=== PATIENT | female | born 1980 | race Hispanic/Latino ===

== ENCOUNTER 2018-03-16 11:55 | Emergency (ER) | payer MEDICAID ==
[2018-03-16] MEDS ORDERED: ACETAMINOPHEN EXTRA STRENGTH 500 MG TABLET ONE (13:55)
== END 2018-03-16 14:27 | disposition home or self-care (01) ==
LOC: EDH 11:55
DX: S40.012A Contusion of left shoulder, initial encounter (principal); S50.02XA Contusion of left elbow, initial encounter; Z88.0 Allergy status to penicillin; W18.39XA Other fall on same level, initial encounter; Y93.89 Activity, other specified; Y92.098 Other place in other non-institutional residence as the place of occurrence of the external cause; Y99.8 Other external cause status
CPT/HCPCS: 73030; 73080

== ENCOUNTER 2018-09-08 21:42 | Emergency (ER) | payer MEDICAID ==
[2018-09-08] MEDS ORDERED: ACETAMINOPHEN EXTRA STRENGTH 500 MG TABLET ONE (21:56)
[2018-09-08] MEDS ORDERED: ONDANSETRON ODT 4 MG TAB ONE (21:56)
[2018-09-08 23:12] LABS: RAPID GROUP A STREP NEGATIVE (NEGATIVE)
[2018-09-08] MEDS ORDERED: CEPHALEXIN 500 MG CAPSULE ONE (23:55)
== END 2018-09-09 | disposition home or self-care (01) ==
LOC: EDH 21:42
DX: J02.9 Acute pharyngitis, unspecified (principal); Z88.0 Allergy status to penicillin
CPT/HCPCS: 87804; 87880

== ENCOUNTER 2024-04-28 07:55 | Emergency (ER) | payer SELFPAY ==
[~2024-04-28] VITALS: Ht 157.5 cm; Wt 91.2 kg
[2024-04-28 08:35] LABS: HEMATOCRIT 42.9 % (36-48); MEAN CORPUSCULAR HEMOGLOBIN 27.5 pg (27.0-33.0); MEAN CORPUSCULAR HGB CONC 32.4 g/dL (32.0-36.0); MEAN CORPUSCULAR VOLUME 84.8 fL (79-99); PLATELET COUNT (AUTO) 392 K/uL (130-400); RED BLOOD CELL COUNT(AUTO) 5.06 MIL/uL (4.00-5.50); WHITE BLOOD COUNT (AUTO) 8.8 K/uL (4.8-10.8)
[2024-04-28 08:39] LABS: APPEARANCE,URINE CLEAR (CLEAR); BILIRUBIN,URINE NEGATIVE (NEGATIVE); COLOR,URINE COLORLESS (YELLOW); GLUCOSE, URINE (UA) NEGATIVE (NEGATIVE); KETONES,URINE NEGATIVE (NEGATIVE); LEUKOCYTE ESTERASE ,URINE NEGATIVE Leu/uL (NEGATIVE); NITRATE,URINE NEGATIVE (NEGATIVE); OCCULT BLOOD,URINE LARGE (NEGATIVE); PH,URINE 7.5 (5.0-8.0); PROTEIN,URINE NEGATIVE (NEGATIVE); UROBILINOGEN,URINE 0.2 mg/dL (0.2-1.0)
[2024-04-28 08:42] LABS: AMPHET/METH SCREEN,URINE NEGATIVE (NEGATIVE); BARBITURATE SCREEN, URINE NEGATIVE (NEGATIVE); BENZODIAZEPINES SCREEN,URINE POSITIVE (NEGATIVE); CANNABINOID SCREEN,URINE POSITIVE (NEGATIVE); COCAINE SCREEN,URINE NEGATIVE (NEGATIVE); OPIATE SCREEN,URINE NEGATIVE (NEGATIVE); PHENCYCLIDINE SCREEN,URINE NEGATIVE (NEGATIVE)
[2024-04-28 08:44] LABS: ADD UA MICROSCOPIC YES
[2024-04-28 08:57] LABS: CREATININE 0.8 mg/dL (0.5-1.0); POTASSIUM 3.3 mmol/L (3.5-5.1)
[2024-04-28 08:58] LABS: BASOPHILS # (AUTO) 0.03 K/uL (0.00-0.20); BASOPHILS % (AUTO) 0.3 % (0.0-5.0); EOSINOPHILS # (AUTO) 0.13 K/uL (0.00-0.70); EOSINOPHILS % (AUTO) 1.5 % (0.0-8.0); IMMATURE GRANULOCYTE ABSOLUTE 0.02 K/uL (0-1); LYMPHOCYTES # (AUTO) 2.6 K/uL (1.0-4.8); LYMPHOCYTES % (AUTO) 29.7 % (21.0-51.0); MONOCYTES # (AUTO) 0.5 K/uL (0.1-1.0); MONOCYTES % (AUTO) 5.2 % (3.0-13.0); NEUTROPHILS # (AUTO) 5.6 K/uL (1.8-7.7); NEUTROPHILS % (AUTO) 63.1 % (40.0-77.0)
[2024-04-28 08:59] LABS: COVID19 (SARS ANTIGEN RAPID) PRESUMPTIVE NEGATIVE (NEGATIVE); INFLUENZA TYPE A Negative For Type A (NEGATIVE); INFLUENZA TYPE B Negative For Type B (NEGATIVE)
[2024-04-28 08:59] LABS: RBC,URINE 0-1 /HPF (0-1); SQUAMOUS EPITHELIAL CELL,UR RARE /HPF (0-2)
[2024-04-28] MEDS ORDERED: HYDR-3421 PO (11:22)
[2024-04-28] MEDS: KCL 20 MEQ ERTAB PO ONE (11:46)
[2024-04-28] MEDS ORDERED: ALPR0.5T PO (12:58)
[2024-04-28] MEDS: HYDROXYZINE 25 MG TABLET PO ONE (13:22)
[2024-04-28 13:33] VITALS: BP 143/74; PULSE 78; RESP 18; O2SAT 98
== END 2024-04-28 13:37 | disposition home or self-care (01) ==
LOC: EDH 07:55
DX: F41.0 Panic disorder [episodic paroxysmal anxiety] (principal); Z88.0 Allergy status to penicillin; Z20.822 Contact with and (suspected) exposure to COVID-19
CPT/HCPCS: 36415; 71045; 80048; 80305; 81001; 85025; 87426; 87804

== ENCOUNTER → 2024-08-25 | Outpatient (CLI) | payer MEDICAID ==
[~2024-08-25] MED LIST: ALPR0.5T PO; HYDR-3421 PO; IOHEXOL-350 75 ML VIAL IV ONE
--- NOTE | 2024-08-25 09:59 | HMCIMG ---
CT ABDOMEN W/CONTRAST REASON: Diverticulitis of large intestine without perforation or abscess without bl COMPARISON: None. TECHNIQUE: Images are obtained from lung bases through the iliac crests. Contrast volume was 75 cc Omnipaque 350. 2The exam was ordered as a CT abdomen only. Both discussions were performed with the physician's office and with the patient who both elected to proceed with the procedure despite absence of coverage in the pelvis. FINDINGS: Lung bases are clear. There are no focal liver lesions. There are normal-appearing kidneys.. Spleen and pancreas appear unremarkable. The gallbladder appears normal as well. Bowel loops appear unremarkable. This includes normal appearance of the appendix. The colon was only evaluated due to the level of the distal descending colon, the rectosigmoid colon was not included on the images. There is no evidence of free fluid or intraperitoneal air. There are no focal fluid collections. Aorta and retroperitoneum appear normal as do pelvic soft tissue structures. The anterior abdominal wall is intact. Osseous structures appear unremarkable. IMPRESSION: 1. Negative noncontrast CT abdomen. 2. CT pelvis recommended for further evaluation is clinical concern persists concerning a sigmoid diverticulitis. CT was performed with one or more following dose reduction techniques: automated exposure control, adjustment of the mA and kv according to patient's size, or use of a iterative reconstruction technique.
== END | disposition home or self-care (01) ==
LOC: RAH 08:44
PROVIDERS: ATTEND Internal Medicine Gastroenterology
DX: K57.32 Diverticulitis of large intestine without perforation or abscess without bleeding (principal)
CPT/HCPCS: 74160; Q9967

== ENCOUNTER 2024-09-23 15:44 | Emergency (ER) | payer MEDICAID ==
[~2024-09-23] VITALS: Ht 157.5 cm; Wt 90.7 kg
[~2024-09-23 15:44] MED LIST changes: -IOHEXOL-350 75 ML VIAL IV ONE
[2024-09-23 15:48] VITALS: BP 134/80; PULSE 79; RESP 20; TEMP 97.3
--- NOTE | 2024-09-23 16:40 | ERN ---
ED Note History of Present Illness Stated Complaint: CP Chief Complaint: Flu Symptoms Time Seen by MD: 16:09 Time Seen by Midlevel: 16:09 Dictation: 44-year-old female presents to the ED for evaluation of flu-like symptoms onset 3 days ago patient is complaining of cough, chest pain, but denies any shortness a breath or any other associated symptoms at this time. Allergies: Coded Allergies: Penicillins (Unverified Allergy, Unknown, 04/28/24) Home Meds Active Scripts Alprazolam (Xanax) 0.5 Mg Tablet, 0.5 MG PO [id number] PRN for anxiety, #3 TAB Prov:LANA PAIGE MD 04/28/24 Hydroxyzine HCl (Hydroxyzine HCl) 25 Mg Tablet, 25 MG PO TIDP PRN for anxiety, #20 TAB Prov:LANA PAIGE MD 04/28/24 Past Medical History Past Medical History: No Pertinent History Surgical History: Family History: Negative Social History: Lives with family Review of System Dictation Constitutional: Negative for fever,chills, and weight loss Eyes: Negative for injury, pain,redness, and discharge ENT: Negative for injury,pain or swelling Cardiovascular: Positive for chest pain negative for palpitations, and edema Respiratory: Positive for cough, Negative for shortness of breath and wheezing, Abdomen/GI: Negative for abdominal pain, nausea, vomiting, diarrhea, and constipation Back: Negative for injury and pain : Negative for injury, bleeding and discharge MS/Extremity: Negative for injury and deformity Skin: Negative for rash, and discoloration Neuro: Negative for headache, weakness, numbness, tingling, and seizure Psych: Negative for suicide ideation, homicidal ideation, and hallucinations Initial Vital Sign VS Vital Signs Date Time Temp Pulse Resp B/P (MAP) Pulse Ox O2 Delivery O2 Flow Rate FiO2 09/23/24 15:48 97.3 79 20 134/80 98 Room Air 0 Physical Exam Dictation General: awake, alert, NAD Head/Face: Normocephalic, atraumatic Eyes: PERRL, EOMI, vision at baseline ENT: oral cavity clear, TMs clear, no signs of infection Neck: Trachea midline, supple, no nuchal rigidity Cardiovascular: RRR, normal S1/S2, No MRGs, no JVD Respiratory: CTAB, no respiratory distress, No rales or wheezes Abdomen: Soft, non-tender, non-distended, normal bowel sounds, no guarding or rebound. Skin: Warm, dry, normal turgor, no rash MS/Extremity: Pulses equal, no cyanosis, neurovascular intact, FROM Neuro: COAx4, GCS 15, strength 5/5, CN 2-12 intact, normal cerebellar exam, normal gait, Psych: Normal behavior, mood, and affect normal Results (Laboratory/Radiology) Laboratory/Radiology Laboratory Tests Test 09/23/24 16:34 09/23/24 16:58 Influenza Type A Antigen Negative For Type A Influenza Type B Antigen Negative For Type B SARS-CoV-2, RNA, NAAT NEGATIVE SARS CoV-2 Group A Streptococcus Rapid negative (NEGATIVE) White Blood Count 9.8 K/uL (4.8-10.8) Red Blood Count 4.62 MIL/uL (4.00-5.50) Hemoglobin 13.0 g/dL (12.0-16.0) Hematocrit 39.2 % (36-48) Mean Corpuscular Volume 84.8 fL (79-99) Mean Corpuscular Hemoglobin 28.1 pg (27.0-33.0) Mean Corpuscular Hemoglobin Concent 33.2 g/dL (32.0-36.0) Red Cell Distribution Width 13.7 % (11.0-15.5) Platelet Count 311 K/uL (130-400) Mean Platelet Volume 8.8 fL (7.5-10.5) Immature Granulocyte % (Auto) 0.5 % (0-1) Neutrophils (%) (Auto) 61.5 % (40.0-77.0) Lymphocytes (%) (Auto) 29.9 % (21.0-51.0) Monocytes (%) (Auto) 5.9 % (3.0-13.0) Eosinophils (%) (Auto) 1.8 % (0.0-8.0) Basophils (%) (Auto) 0.4 % (0.0-5.0) Neutrophils # (Auto) 6.1 K/uL (1.8-7.7) Lymphocytes # (Auto) 2.9 K/uL (1.0-4.8) Monocytes # (Auto) 0.6 K/uL (0.1-1.0) Eosinophils # (Auto) 0.18 K/uL (0.00-0.70) Basophils # (Auto) 0.04 K/uL (0.00-0.20) Absolute Immature Granulocyte (auto 0.05 K/uL (0-1) Nucleated Red Blood Cells 0.0 % (0.0-0.19) Sodium Level 139 mmol/L (136-145) Potassium Level 3.8 mmol/L (3.5-5.1) Chloride Level 103 mmol/L (101-111) Carbon Dioxide Level 29 mmol/L (21-32) Blood Urea Nitrogen 7 mg/dL (7-18) Creatinine 0.7 mg/dL (0.5-1.0) Glomerular Filtration Rate Calc 111 mL/min (>90) Random Glucose 93 mg/dL (70-105) Total Calcium 8.7 mg/dL (8.5-10.1) Total Creatine Kinase 140 U/L (21-232) Troponin I High Sensitivity < 4 ng/L (4-50) L B-Type Natriuretic Peptide 20 pg/mL (0-100) [place] [address] IMAGING REPORT Signed PATIENT: ONI CHAVEZ MR#: [id number] : 1980 SEX: F AGE: 44 LOCATION: [facility] ORDER 35 STATUS: [facility] REPORT#: [id number] SERVICE [id number] REASON: cough/sob ORDERING PHYSICIAN: JAMAL HILL PROCEDURE: CXR1VW - CHEST 1VW CHEST 1VW HISTORY: Cough COMPARISON: 04/28/2024 FINDINGS: A frontal projection of the chest was obtained. Prominent interstitial markings are seen with possible superimposed infiltrates. The heart is normal in size. Mild degenerative changes are seen. No evidence of aortic calcification is seen. IMPRESSION: 1. Prominent interstitial markings are seen with possible superimposed infiltrates. DICTATED BY: KAIA YEBOAH MD DATE: 09/23/241820 ELECTRONICALLY SIGNED BY: KAIA YEBOAH MD DATE: 09/23/241823 Labs Reviewed?: Yes EKG Comment: EKG 09/23/2024 time 3:51 p.m. ventricular rate 70, WA 141, QRS D 80, QT 396. Sinus rhythm. No STEMI ED Course ED Course Orders Procedure Category Date Status Time 12 Lead Ekg Tracing- EKG 09/23/24 Resulted Technical 16:22 Covid Rna Naat LAB 09/23/24 Complete 16:22 Influenza Type A & B, LAB 09/23/24 Complete Rapid 16:22 Rapid (Group A Strep) LAB 09/23/24 Complete 16:22 B-Type Natriuretic LAB 09/23/24 Complete Peptide 16:35 Cbc With Differential LAB 09/23/24 Complete 16:35 Basic Metabolic Panel LAB 09/23/24 Complete 16:35 Creatine Kinase, Total LAB 09/23/24 Complete 16:35 Troponin I High LAB 09/23/24 Complete Sensitivity 16:35 Chest 1vw RAD 09/23/24 Resulted 16:35 Vital Signs Date Time Temp Pulse Resp B/P (MAP) Pulse Ox O2 Delivery O2 Flow Rate FiO2 09/23/24 15:48 97.3 79 20 134/80 98 Room Air 0 Medical Decision Making MDM MDM: Differential diagnosis: Viral syndrome, chest pain respiratory infection Previous outside records reviewed: Old ER visits. Need for hospitalization: Patient does not meet criteria for hospitalization. Need for emergency major/minor surgery: No Patient's prior external medical records from other ER visits were reviewed by me as indicated. Prior testing and results from previous visits were reviewed. Prior tests were taken into account with medical decision making and resource utilization, independent historian/historians were used to obtain complete medical history. I independently interpreted the test that were performed, results were reviewed by me and considered findings on radiology if ordered. Medical management and examination interpretation discussions were had by me with other qualified healthcare professionals as indicated for the patient's care. DX & DISP Disposition: Discharge Departure Impression: Primary Impression: Non-cardiac chest pain Condition: Stable Additional Instructions: Your blood work today is unremarkable. Your cardiac enzymes are negative. Your chest x-ray does not show any evidence of pneumonia. Your EKG is normal. You have tested negative for influenza a, influenza B, and COVID-19, and strep. Please follow up with your primary care doctor in 2-3 days for repeat evaluation. Return to the ER for any new or worsening symptoms. Referrals: MARIANNE CHAVEZ MD (PCP) Time of Disposition: 18:19 I have reviewed, & agreed with my scribe's, documentation. (Entered by Sherly Singh, acting as a scribe for SEAN Hill) I have reviewed the case, and I agree with, Diagnosis and Plan I performed this substantive portion of this visit. I have reviewed and personally made and approve the management plan that is documented in the note by myself or the BUBBA. I acknowledge full responsibility for the patient's management plan. I personally scribed for JAMAL HILL ([email or web address]) on 09/23/24 at 16:40. Electronically submitted by Sherly Singh (Jooce). I personally scribed for JAMAL IHLL ([email or web address]) on 09/23/24 at 16:43. Electronically submitted by Sherly Singh (Jooce). JAMAL HILL Sep 23, 2024 16:40
[2024-09-23 16:49] LABS: RAPID GROUP A STREP negative (NEGATIVE)
[2024-09-23 16:53] LABS: SARS-CoV-2, RNA, NAAT NEGATIVE SARS CoV-2 (NEGATIVE)
[2024-09-23 17:00] LABS: INFLUENZA TYPE A Negative For Type A (NEGATIVE); INFLUENZA TYPE B Negative For Type B (NEGATIVE)
[2024-09-23 17:03] LABS: BASOPHILS # (AUTO) 0.04 K/uL (0.00-0.20); BASOPHILS % (AUTO) 0.4 % (0.0-5.0); EOSINOPHILS # (AUTO) 0.18 K/uL (0.00-0.70); EOSINOPHILS % (AUTO) 1.8 % (0.0-8.0); HEMATOCRIT 39.2 % (36-48); IMMATURE GRANULOCYTE ABSOLUTE 0.05 K/uL (0-1); LYMPHOCYTES # (AUTO) 2.9 K/uL (1.0-4.8); LYMPHOCYTES % (AUTO) 29.9 % (21.0-51.0); MEAN CORPUSCULAR HEMOGLOBIN 28.1 pg (27.0-33.0); MEAN CORPUSCULAR HGB CONC 33.2 g/dL (32.0-36.0); MEAN CORPUSCULAR VOLUME 84.8 fL (79-99); MONOCYTES # (AUTO) 0.6 K/uL (0.1-1.0); MONOCYTES % (AUTO) 5.9 % (3.0-13.0); NEUTROPHILS # (AUTO) 6.1 K/uL (1.8-7.7); NEUTROPHILS % (AUTO) 61.5 % (40.0-77.0); PLATELET COUNT (AUTO) 311 K/uL (130-400); RED BLOOD CELL COUNT(AUTO) 4.62 MIL/uL (4.00-5.50); RED CELL DISTRIBUTION WIDTH 13.7 % (11.0-15.5); WHITE BLOOD COUNT (AUTO) 9.8 K/uL (4.8-10.8)
[2024-09-23 17:17] LABS: CREATININE 0.7 mg/dL (0.5-1.0); POTASSIUM 3.8 mmol/L (3.5-5.1)
[2024-09-23 17:23] LABS: B-TYPE NATRIURETIC PEPTIDE 20 pg/mL (0-100)
--- NOTE | 2024-09-23 18:24 | HMCIMG ---
CHEST 1VW HISTORY: Cough COMPARISON: 04/28/2024 FINDINGS: A frontal projection of the chest was obtained. Prominent interstitial markings are seen with possible superimposed infiltrates. The heart is normal in size. Mild degenerative changes are seen. No evidence of aortic calcification is seen. IMPRESSION: 1. Prominent interstitial markings are seen with possible superimposed infiltrates.
--- NOTE | 2024-09-24 07:04 | EKG ---
[facility] Test Date: 2024-09-23 Test Time: 15:51:02 Pat Name: ONI CHAVEZ Department: ED Room: Gender: F Community Health Navigator: [facility] : 1980 Requested By: JAMAL SCHMIDT Order Number: [id number] Reading MD: Sherry Stearns Measurements Intervals [place] Rate: 70 P: 23 TN: 141 QRS: 39 QRSD: 80 T: 6 QT: 396 QTc: 429 Interpretive Statements Sinus rhythm No previous ECG available for comparison Electronically Signed On 09-24-2024 08:17:27 BUSBOY by Sherry Stearns Please click the below link to view image of tracing.
== END 2024-09-23 18:33 | disposition home or self-care (01) ==
LOC: EDH 15:44
DX: R07.89 Other chest pain (principal); Z88.0 Allergy status to penicillin; Z20.822 Contact with and (suspected) exposure to COVID-19
CPT/HCPCS: 36415; 71045; 80048; 82550; 83880; 84484; 85025; 87635; 87804; 87880; 93005; 99285

== ENCOUNTER → 2024-10-14 | Outpatient (CLI) | payer MEDICAID ==
[~2024-10-14] MED LIST changes: +IOHEXOL 350 MG/ML 100ML INFUS..BTL IV ONE
--- NOTE | 2024-10-14 13:02 | HMCIMG ---
CT ABDOMEN/PELVIS W/CONTRAST REASON: DIVERTICULITIS OF LARGE INTESTINE WITHOUT PERFORATIONI OR ABSCESS WITHOUT B COMPARISON: 08/25/2024 TECHNIQUE: Images are obtained from lung bases to symphysis pubis following IV contrast, 100 cc Omnipaque 350. FINDINGS: Lung bases are clear. There are no focal liver lesions. There are normal-appearing kidneys.. Spleen and pancreas appear unremarkable. The gallbladder appears normal as well. There are a few isolated sigmoid diverticula. There is no evidence of diverticulitis. Bowel loops appear otherwise unremarkable. This includes normal appearance of the appendix There is no evidence of free fluid or intraperitoneal air. There are no focal fluid collections. Aorta and retroperitoneum appear normal as do pelvic soft tissue structures. The anterior abdominal wall is intact. Osseous structures appear unremarkable. IMPRESSION: 1. No acute finding in the abdomen or pelvis. CT was performed with one or more following dose reduction techniques: automated exposure control, adjustment of the mA and kv according to patient's size, or use of a iterative reconstruction technique.
== END | disposition home or self-care (01) ==
LOC: RAH 10:11
PROVIDERS: ATTEND Internal Medicine Gastroenterology
DX: K57.30 Diverticulosis of large intestine without perforation or abscess without bleeding (principal); K57.32 Diverticulitis of large intestine without perforation or abscess without bleeding
CPT/HCPCS: 74177; Q9967

== ENCOUNTER 2025-05-17 11:31 | Emergency (ER) | payer MEDICAID ==
[~2025-05-17] VITALS: Ht 157.5 cm; Wt 90.7 kg
[~2025-05-17 11:31] MED LIST changes: -IOHEXOL 350 MG/ML 100ML INFUS..BTL IV ONE
[2025-05-17] MEDS: 0.9%NACL 1000ML 1,000 ML IV ONE (13:57)
[2025-05-17 14:06] LABS: IMMATURE GRANULOCYTE ABSOLUTE 0.04 K/uL (0-1); NUCLEATED RED BLOOD CELLS 0.0 % (0.0-0.19); PLATELET COUNT (AUTO) 306 K/uL (130-400); RED BLOOD CELL COUNT(AUTO) 4.82 MIL/uL (4.00-5.50); RED CELL DISTRIBUTION WIDTH 13.9 % (11.0-15.5); WHITE BLOOD COUNT (AUTO) 8.3 K/uL (4.8-10.8)
[2025-05-17] MEDS ORDERED: IOHEXOL-350 75 ML VIAL IV ONE (14:19)
[2025-05-17 14:20] LABS: APPEARANCE,URINE CLEAR (CLEAR); GLUCOSE, URINE (UA) NEGATIVE (NEGATIVE); LEUKOCYTE ESTERASE ,URINE NEGATIVE Leu/uL (NEGATIVE); NITRATE,URINE NEGATIVE (NEGATIVE); OCCULT BLOOD,URINE SMALL (NEGATIVE)
[2025-05-17 14:21] LABS: ADD UA MICROSCOPIC YES
[2025-05-17 14:22] LABS: SQUAMOUS EPITHELIAL CELL,UR FEW /HPF (0-2)
[2025-05-17 14:32] LABS: CREATININE 0.6 mg/dL (0.5-1.0); GLOMERULAR FILTR. RATE CALC 114.0 mL/min (>90); GLUCOSE,RANDOM 86.0 mg/dL (70-105); SODIUM SERUM 138.0 mmol/L (136-145); UREA NITROGEN, BLOOD 9.0 mg/dL (7-18)
--- NOTE | 2025-05-17 15:55 | HMCIMG ---
EXAM: CT Abdomen and Pelvis with IV contrast CLINICAL HISTORY: llq abd pain r/o diverticulitis TECHNIQUE: Axial computed tomography images of the abdomen and pelvis with intravenous contrast. CONTRAST: with intravenous contrast. COMPARISON: None provided. FINDINGS: LUNG BASES: The lung bases appear clear. No pleural effusions are seen. LIVER: Enlarged liver with diffuse fatty infiltration. GALLBLADDER AND BILE DUCTS: The gallbladder appears within normal limits. No radioopaque gallstones are seen. No biliary ductal dilatation is evident. PANCREAS: Unremarkable. SPLEEN: Unremarkable. ADRENAL GLANDS: Unremarkable. KIDNEYS, URETERS, AND BLADDER: Normal kidneys. No hydronephrosis. STOMACH AND BOWEL: No bowel obstruction or inflammation. APPENDIX: Normal appendix. PERITONEUM: No free air, free fluid or fluid collection. LYMPH NODES: No lymphadenopathy is evident. REPRODUCTIVE: 2.5 x 2.0 cm left adnexal cyst. VASCULATURE: No evidence of abdominal aortic aneurysm. BONES: No aggressive appearing osseous lesion. No acute osseous pathology evident. IMPRESSION: 1. 2.5 x 2.0 cm left adnexal cyst. If indicated, further evaluation with ultrasound could be performed. 2. No bowel obstruction or inflammation. Normal appendix. 3. Normal kidneys. No hydronephrosis. 4. Enlarged liver with diffuse fatty infiltration. 5. No free air, free fluid or fluid collection. /[place]
--- NOTE | 2025-05-17 16:10 | ERN ---
General Chief Complaint: Multiple Complaints Stated Complaint: MULTIPLE COMPLAINTS Time Seen by MD: 11:46 Time Seen by Midlevel: 11:46 Source: patient History of Present Illness Initial Comments The patient is a 45-year-old female with a past medical history of diverticulitis presenting to the emergency department for evaluation of left lower quadrant abdominal pain. Patient reports being diagnosed with COVID and an ear infection last week and is currently taking antibiotics. Allergies: Coded Allergies: Penicillins (Unverified Allergy, Unknown, 04/28/24) Home Meds Active Scripts Alprazolam (Xanax) 0.5 Mg Tablet, 0.5 MG PO [id number] PRN for anxiety, #3 TAB Prov:LANA PAIGE MD 04/28/24 Hydroxyzine HCl (Hydroxyzine HCl) 25 Mg Tablet, 25 MG PO TIDP PRN for anxiety, #20 TAB Prov:LANA PAIGE MD 04/28/24 Past Medical History Past Medical History: Anxiety Past Surgical History: Family History Family History: Negative Social History Social History: Lives with family ROS Dictation CONSTITUTIONAL: Negative except for HPI HEAD/FACE: Negative except for HPI EENT: Negative except for HPI RESPIRATORY: Negative except for HPI GASTROINTESTINAL/ABDOMINAL: Negative except for HPI GENITOURINARY: Negative except for HPI MUSCULOSKELETAL: Negative except for HPI INTEGUMENTARY: Negative except for HPI NEUROLOGICAL/PSYCH: Negative except for HPI HEMATOLOGIC/LYMPHATIC: Negative except for HPI All Systems Negative, Except as noted above. 13 point review of systems assessed and all negative except for above. Physical Exam Physical Exam Dictation Vital Signs reviewed General Appearance: Alert, oriented x 3, no acute distress, well developed, nourished. Head and Face: non-traumatic. Eyes: PERRL, pink conjunctivas, eyelid no trauma, anterior chamber with arcus senilis. Ears: Pinnas intact and no signs of trauma or erythema ear canals clear and no discharge TM no erythema Nose: No discharge, no bleeding. Oropharynx: Mouth normal, tongue pink, pharynx clear,no erythema, tonsils no exudates, no abscesses noted, mucous membrane moist Neck: Supple, non-tender, no thyromegaly, no masses, no JVD, no bruits Breast:Deferred Chest:No tenderness, no crepitus, no paradoxical movement, no retractions Lungs:Clear, well-ventilated, symmetric, no rales, no wheezing, no rhonchi, no stridor, good breath sounds bilaterally Heart: Regular rate, regular rhythm, no murmur, no gallops Vascular: no peripheral edema, Abdomen: Soft, positive bowel sounds, nondistended, no guarding, Left lower quadrant abdominal tenderness, no rebound, no masses no hepatomegaly, no splenomegaly, no Blanchard's sign, no hernias. Rectal: Deferred Genital: Deferred Neurological: Normal speech, motor function intact, sensory function intact Musculoskeletal: Neck nontender, full range of motion, back nontender, full range of motion, Extremities: nontender, full range of motion Skin: Color pink, dry, no turgor, no rash, no lacerations, no abrasions, no contusions. Lymphatic: Deferred Results Laboratory and Microbiology Lab and Micro Result Laboratory Tests Test 05/17/25 13:44 05/17/25 13:46 White Blood Count 8.3 K/uL (4.8-10.8) Red Blood Count 4.82 MIL/uL (4.00-5.50) Hemoglobin 13.2 g/dL (12.0-16.0) Hematocrit 40.6 % (36-48) Mean Corpuscular Volume 84.2 fL (79-99) Mean Corpuscular Hemoglobin 27.4 pg (27.0-33.0) Mean Corpuscular Hemoglobin Concent 32.5 g/dL (32.0-36.0) Red Cell Distribution Width 13.9 % (11.0-15.5) Platelet Count 306 K/uL (130-400) Mean Platelet Volume 9.0 fL (7.5-10.5) Immature Granulocyte % (Auto) 0.5 % (0-1) Neutrophils (%) (Auto) 70.6 % (40.0-77.0) Lymphocytes (%) (Auto) 17.4 % (21.0-51.0) L Monocytes (%) (Auto) 10.9 % (3.0-13.0) Eosinophils (%) (Auto) 0.4 % (0.0-8.0) Basophils (%) (Auto) 0.2 % (0.0-5.0) Neutrophils # (Auto) 5.9 K/uL (1.8-7.7) Lymphocytes # (Auto) 1.5 K/uL (1.0-4.8) Monocytes # (Auto) 0.9 K/uL (0.1-1.0) Eosinophils # (Auto) 0.03 K/uL (0.00-0.70) Basophils # (Auto) 0.02 K/uL (0.00-0.20) Absolute Immature Granulocyte (auto 0.04 K/uL (0-1) Nucleated Red Blood Cells 0.0 % (0.0-0.19) Sodium Level 138 mmol/L (136-145) Potassium Level 3.5 mmol/L (3.5-5.1) Chloride Level 100 mmol/L (101-111) L Carbon Dioxide Level 28 mmol/L (21-32) Blood Urea Nitrogen 9 mg/dL (7-18) Creatinine 0.6 mg/dL (0.5-1.0) Glomerular Filtration Rate Calc 114 mL/min (>90) Random Glucose 86 mg/dL (70-105) Lactic Acid Level 2.6 mmol/L (0.8-2.5) H Total Calcium 8.8 mg/dL (8.5-10.1) Serum Test, Qualitative NEGATIVE (NEGATIVE) Urine Color LIGHT-YELLOW (YELLOW) Urine Appearance CLEAR (CLEAR) Urine pH 6.5 (5.0-8.0) Urine Specific [place] 1.018 (1.001-1.031) Urine Protein NEGATIVE mg/dL (NEGATIVE) Urine Glucose (UA) NEGATIVE mg/dL (NEGATIVE) Urine Ketones NEGATIVE mg/dL (NEGATIVE) Urine Occult Blood SMALL (NEGATIVE) H Urine Nitrate NEGATIVE (NEGATIVE) Urine Bilirubin NEGATIVE mg/dL (NEGATIVE) Urine Urobilinogen 0.2 mg/dL (0.2-1.0) Urine Leukocyte Esterase NEGATIVE Kirstie/uL Urine RBC 2-5 /HPF (0-1) H Urine WBC 2-5 /HPF (0-1) H Urine Squamous Epithelial Cells FEW /HPF (0-2) Urine Bacteria RARE /HPF (None Seen) Labs Reviewed?: Yes MDM MDM: Differential diagnosis: Diverticulitis, dehydration, electrolyte abnormality There are no social concerns with this patient. Prescription drug management Prescriptions will include: None Medical management and examination interpretation discussions were had by me with other qualified healthcare professionals as indicated for the patient's care. ED Course Orders Procedure Category Date Status Time Cbc With Differential LAB 05/17/25 Complete 13:35 Basic Metabolic Panel LAB 05/17/25 Complete 13:35 Lactic Acid LAB 05/17/25 Complete 13:35 Urinalysis Profile LAB 05/17/25 Complete 13:35 Testing, LAB 05/17/25 Complete Serum Hcg 13:35 Morphine 2mg Syg PHA 05/17/25 Complete (Morphine 2mg Syg) 14:00 Ondansetron 4mg Inj PHA 05/17/25 Complete (Zofran 4mg Inj) 14:00 0.9%Nacl 1000ml (Ns PHA 05/17/25 Complete 1000ml) 14:00 Ct Abdomen/Pelvis CT 05/17/25 Resulted W/Contrast 13:35 Iohexol (Omnipaque) PHA 05/17/25 Complete 14:19 Us Pelvic Non-Ob US 05/17/25 Taken Limited 16:54 Lactic Acid (Removed) LAB 05/17/25 Logged 17:10 Current Medications Medications (Trade) Dose Ordered Sig/Perla Route PRN Reason Start Time Stop Time Status Last Admin Dose Admin Iohexol (Omnipaque) 75 ml STK-MED ONCE IV 05/17/25 14:19 05/17/25 14:20 DC Morphine Sulfate (morPHINE 2MG SYG) 2 mg ONCE ONCE IVP 05/17/25 14:00 05/17/25 14:01 DC 05/17/25 13:58 Ondansetron HCl (zoFRAN 4MG INJ) 4 mg ONCE ONCE IVP 05/17/25 14:00 05/17/25 14:01 DC 05/17/25 13:57 Sodium Chloride 1,000 ml @ 0 mls/hr ONCE ONCE IV 05/17/25 14:00 05/17/25 14:01 DC 05/17/25 13:57 Vital Signs Date Time Temp Pulse Resp B/P (MAP) Pulse Ox O2 Delivery O2 Flow Rate FiO2 05/17/25 16:12 98.1 72 16 118/64 98 Room Air* 0 21 05/17/25 11:58 98.1 75 16 115/60 98 Room Air* 0 05/17/25 11:32 97.9 79 16 115/62 99 Room Air 0 DX & DISP Disposition: Discharge Departure Impression: Primary Impression: Adnexal cyst Condition: Stable Additional Instructions: Your blood work today is unremarkable. Your urinalysis does not show any evidence of infection. Your CT scan shows no evidence of diverticulitis. Your CT scan shows a 2.5 x 2.0 cm left adnexal cyst. However the remainder of your CT scan is unremarkable. Your pelvic ultrasound shows no ovarian torsion or any other abnormality. A left adnexal cyst is a fluid-filled sac near your left ovary. These are common and often harmless. Many resolve on their own, but some can cause pain. You may take Tylenol or Motrin as directed unless told otherwise. Avoid strenuous activity or heavy lifting until pain improves. You may apply a heating pad to the lower abdomen. Drink plenty of fluids. Follow up with your primary care doctor or OBGYN within the next one or two weeks for repeat evaluation. You may need a repeat ultrasound to monitor the cyst. Referrals: ARTUR HARRISON (PCP) I have reviewed the case, and I agree with, Diagnosis and Plan I performed the substantive portion of the visit. I have reviewed and personally made and approve the management plan that is documented in the note by myself or the BUBBA. I acknowledge for responsibility for the patient's management plan. JAMAL SCHMIDT May 17, 2025 16:10
[2025-05-17 17:31] VITALS: BP 120/66; PULSE 75; RESP 16; TEMP 98.1; O2SAT 98
[2025-05-17] MEDS ORDERED: AZIT250T9 PO (17:37)
--- NOTE | 2025-05-17 18:10 | HMCIMG ---
Exam: Transabdominal pelvic ultrasound limited. History: Rule out left ovarian torsion. Technique: Static grayscale and color Doppler images of the left ovary were obtained. Findings: The left ovary is normal in size, contour and echotexture measuring 3.2 x 2.2 x 2.8 cm. Patent blood flow is detected within the left ovary. There is a left ovarian cyst measuring 2.4 x 1.4 x 1.4 cm. Impression: Limited exam. The left ovary is grossly normal in appearance. There is a 2.4 cm left ovarian cystic structure. Consider transvaginal pelvic ultrasound for further evaluation /[place]
== END 2025-05-17 17:41 | disposition home or self-care (01) ==
LOC: EDH 11:31
DX: N83.292 Other ovarian cyst, left side (principal); F41.9 Anxiety disorder, unspecified; Z88.0 Allergy status to penicillin
CPT/HCPCS: 99285; 74177; 96374; 76857; 96361; 96375; 80048; 84703; 85025; 83605; 81001; 36415; J2270; J7030; J2405; Q9967